=== PATIENT | male | born 1970 | race Caucasian/White ===

== ENCOUNTER 2020-05-07 06:31 | Outpatient (REF) | payer OTHER, SELFPAY | END 2020-05-07 06:32 | disposition home or self-care (01) | LOC: HO.LAB 06:31 | PROVIDERS: Visit Provider Internal Medicine | DX: Z20.828 Contact with and (suspected) exposure to other viral communicable diseases (principal) | CPT/HCPCS: C9803; U0003 ==

== ENCOUNTER 2020-12-16 11:48 | Outpatient (REF) | payer OTHER, SELFPAY | END 2020-12-16 11:49 | disposition home or self-care (01) | LOC: HO.LAB 11:48 | PROVIDERS: Visit Provider Internal Medicine | DX: Z20.822 Contact with and (suspected) exposure to COVID-19 (principal) | CPT/HCPCS: C9803; U0003; U0005 ==

== ENCOUNTER 2021-05-22 09:23 | Outpatient (REF) | payer OTHER, SELFPAY ==
[2021-05-22 11:00] LABS: COVID-19 Test Positive (Negative)
== END 2021-05-22 09:24 | disposition home or self-care (01) ==
LOC: HO.LAB 09:23
PROVIDERS: Visit Provider Internal Medicine
DX: Z20.822 Contact with and (suspected) exposure to COVID-19 (principal)
CPT/HCPCS: 87635; C9803

== ENCOUNTER 2021-05-28 07:27 | Outpatient (REF) | payer OTHER, SELFPAY ==
[2021-05-28 08:05] LABS: COVID-19 Test Negative (Negative); IDNOW Serial# 16C4AD1C
== END 2021-05-28 07:28 | disposition home or self-care (01) ==
LOC: HO.LAB 07:27
PROVIDERS: Visit Provider Internal Medicine
DX: Z20.822 Contact with and (suspected) exposure to COVID-19 (principal)
CPT/HCPCS: 87635; C9803

== ENCOUNTER 2021-12-23 11:47 | Outpatient (REF) | payer OTHER, SELFPAY ==
[2021-12-23 12:30] LABS: COVID-19 Test Negative (Negative)
== END 2021-12-23 11:48 | disposition home or self-care (01) ==
LOC: HO.LAB 11:47
PROVIDERS: Visit Provider Internal Medicine
DX: Z20.822 Contact with and (suspected) exposure to COVID-19 (principal)
CPT/HCPCS: 87635; C9803